=== PATIENT | male | born 1995 | race African-American/Black ===

== ENCOUNTER 2019-12-28 16:28 | Emergency (ER) | payer SELFPAY ==
[~2019-12-28] VITALS: Ht 175.3 cm; Wt 68.0 kg
--- NOTE | 2019-12-28 16:45 | NUR ---
Patient discharged to home in stable condition. Written and verbal after care instructions given. Patient verbalizes understanding of instructions. Stressed follow up or return to ER for worsening s/s.
== END 2019-12-28 16:48 | disposition home or self-care (01) ==
LOC: ER 16:28
DX: K08.89 Other specified disorders of teeth and supporting structures (principal); Z76.0 Encounter for issue of repeat prescription
CPT/HCPCS: A4663